=== PATIENT | female | born 1970 | race Caucasian/White ===

== ENCOUNTER 2022-10-21 08:55 | Emergency (ER) | payer OTHER ==
[2022-10-21 09:10] VITALS: BP 137/87; PULSE 75; RESP 16; TEMP 98.2; BMI 29.3
[2022-10-21] MEDS ORDERED: IBUPROFEN 400 MG TABLET (FP) PO ONE ×2 (09:49→09:56)
[2022-10-21] MEDS ORDERED: BACITRACIN ZINC 15 GM TUBE TOPICAL OINTMENT ONE (10:23)
[2022-10-21] MEDS ORDERED: BACITRACIN 0.9 GM PACKET TP ONE (10:23)
== END 2022-10-21 10:43 | disposition home or self-care (01) ==
LOC: JER 08:55
DX: S09.90XA Unspecified injury of head, initial encounter (principal); S10.91XA Abrasion of unspecified part of neck, initial encounter; S00.03XA Contusion of scalp, initial encounter; W01.0XXA Fall on same level from slipping, tripping and stumbling without subsequent striking against object, initial encounter
CPT/HCPCS: 99283-25